=== PATIENT | male | born 1985 | race Caucasian/White ===

== ENCOUNTER 2021-03-18 06:43 | Emergency (ER) | payer OTHER ==
[2021-03-18 07:46] VITALS: BP 115/74; PULSE 83; TEMP 97.9; BMI 354.0
== END 2021-03-18 08:15 | disposition home or self-care (01) ==
LOC: JERFT 06:43 → JER 06:43 → JERFT 08:15
DX: H60.501 Unspecified acute noninfective otitis externa, right ear (principal); H66.90 Otitis media, unspecified, unspecified ear
CPT/HCPCS: 99282-25

== ENCOUNTER 2023-08-30 16:53 | Emergency (ER) | payer OTHER ==
[2023-08-30 17:47] VITALS: BP 110/73; PULSE 79; RESP 18; TEMP 99; BMI 35.4
[2023-08-30 20:33] LABS: BASO % 0.7 % (0-2.0); HEMATOCRIT 46.5 % (35.4-49); HEMOGLOBIN 15.8 GM/dL (11.7-16.9); MCH 29.8 pg (25.7-33.7); MEAN CELL VOLUME 87.7 fl (80-96); MEAN PLT VOLUME 7.4 fl (7.5-11.1); MONO % 8.7 % (3.8-10.2); NEUT % 65.6 % (42.8-82.8); PLATELET COUNT 276 10^3/uL (134-434); RDW 13.9 % (11.9-15.9)
[2023-08-30] MEDS ORDERED: ONDANSETRON 4 MG/2 ML VIAL ONE (20:33)
[2023-08-30] MEDS ORDERED: FAMOTIDINE 20 MG/50 ML IVPB 20 MG/50 ML MG IVPB ONE (20:33)
[2023-08-30] MEDS ORDERED: ACETAMINOPHEN INJECTION 100 ML IVPB ONE (20:33)
[2023-08-30] MEDS ORDERED: MAG HYDROX/AL HYDROX/SIMETH 30 ML UNIT-DOSE CUP ONE (20:33)
[2023-08-30] MEDS: MAG HYDROX/AL HYDROX/SIMETH 30 ML UNIT-DOSE CUP PO ONE (20:44)
[2023-08-30] MEDS: ONDANSETRON 4 MG/2 ML VIAL IVPUSH ONE (20:44)
[2023-08-30] MEDS: LACTATED RINGERS SOLUTION 1000 ML INFUS.BAG IV ONE (20:44)
[2023-08-30] MEDS: ACETAMINOPHEN 1000 MG/100 ML BAG IVPB ONE (20:45)
[2023-08-30 20:53] LABS: POTASSIUM 4.4 mmol/L (3.5-5.1)
[2023-08-30 20:57] LABS: CALCIUM 9.4 mg/dL (8.5-10.1)
[2023-08-30 20:58] LABS: ALBUMIN 3.9 g/dl (3.4-5.0); BLOOD UREA NITROGEN 10.1 mg/dL (7-18)
[2023-08-30 21:01] LABS: CREATININE 0.8 mg/dL (0.55-1.3)
[2023-08-30 21:02] LABS: BILIRUBIN,TOTAL 0.8 mg/dL (0.2-1); TOT PROT 8.2 g/dl (6.4-8.2)
[2023-08-30] MEDS: FAMOTIDINE 20 MG/50 ML IVPB 20 MG/50 ML MG IVPB ONE (21:07)
== END 2023-08-30 23:14 | disposition home or self-care (01) ==
LOC: JER 16:53
DX: R11.2 Nausea with vomiting, unspecified (principal); R68.83 Chills (without fever); R10.11 Right upper quadrant pain; K29.70 Gastritis, unspecified, without bleeding; Z20.822 Contact with and (suspected) exposure to COVID-19
CPT/HCPCS: 0241U-QW; 36415; 76705-TC; 80053; 83690; 85025; 99284-25; J0131

== ENCOUNTER 2024-01-04 19:59 | Emergency (ER) | payer OTHER ==
[2024-01-04 20:05] VITALS: BMI 35.4
[2024-01-04] MEDS ORDERED: ACETAMINOPHEN 500 MG TABLET (FP) ONE (20:37)
[2024-01-04] MEDS: ACETAMINOPHEN 500 MG TABLET (FP) PO ONE (20:44)
[2024-01-04 22:51] VITALS: BP 119/80; PULSE 93; RESP 19; TEMP 98.7
[2024-01-04] MEDS ORDERED: CEPHALEXIN MONOHYDRATE 500 MG CAPSULE (UD) ONE (22:52)
[2024-01-04] MEDS ORDERED: IBUPROFEN 600 MG TABLET (FP) PO ONE (22:52)
[2024-01-04] MEDS: CEPHALEXIN MONOHYDRATE 500 MG CAPSULE (UD) PO ONE (22:56)
[2024-01-04] MEDS: IBUPROFEN 600 MG TABLET (FP) PO ONE (22:56)
== END 2024-01-04 22:56 | disposition home or self-care (01) ==
LOC: JER 19:59
DX: L73.9 Follicular disorder, unspecified (principal); Z20.822 Contact with and (suspected) exposure to COVID-19
CPT/HCPCS: 0241U-QW; 99283-25